=== PATIENT | male | born 1955 | race Caucasian/White ===

== ENCOUNTER 2025-06-21 08:39 | Emergency (ER) | payer OTHER, SELFPAY ==
[2025-06-21 08:45] VITALS: BP 148/97; PULSE 102; RESP 18; TEMP 36.4; O2SAT 98; BMI 26.0
--- NOTE | 2025-06-21 09:02 | ED.GENADULT ---
HPI - General Adult General Chief complaint: Unspecified Complaint, Adult Stated complaint: cardiac and skin concerns Time Seen by Provider: 06/21/25 08:57 History of Present Illness HPI narrative: Patient is a 69-year-old gentleman earlier this month had what sounds like a left femoral popliteal bypass. He does use tobacco. He has a home health nurse that the and the emergency room today as the patient has been out of his amiodarone and Eliquis and metoprolol for the last week. Patient has no signs of any clotting. The wound is due to be inspected on the left groin. He does have a follow-up appointment in 2 weeks with 1 my colleagues. He has had no chest pain no shortness a breath orthopnea no PND. He is not able to tell me his complete past medical history. He is not certain why his meds have run out. Related Data Home Medications ?Medication ?Instructions ?Recorded ?Confirmed gabapentin 100 mg capsule 100 mg PO TID 09/03/24 06/21/25 magnesium gluconate 29.25 mg (500 29.3 mg PO QDAY 09/03/24 06/21/25 mg) tablet metoprolol tartrate 25 mg tablet 25 mg PO QDAY 09/03/24 06/21/25 omeprazole 20 mg capsule,delayed 20 mg PO QDAY 09/03/24 06/21/25 release amiodarone 200 mg tablet 200 mg PO DAILY 06/21/25 06/21/25 apixaban 5 mg tablet (Eliquis) 5 mg PO BID 06/21/25 06/21/25 Previous Rx's ?Medication ?Instructions ?Recorded amiodarone 200 mg tablet 200 mg PO DAILY #30 tabs 06/21/25 apixaban 5 mg tablet (Eliquis) 5 mg PO BID #60 tabs 06/21/25 metoprolol tartrate 25 mg tablet 25 mg PO BID #60 tabs 06/21/25 Allergies Allergy/AdvReac Type Severity Reaction Status Date / Time No Known Allergies Allergy Mild Verified 06/21/25 08:53 Review of Systems Status of ROS: Reports: 10 or more systems reviewed and unremarkable except as noted in History and below [facility] PFS Surgical History S/P femoral-popliteal bypass surgery ?Z95.828 - Presence of other vascular implants and grafts (ICD-10) Exam Narrative: Exam Narrative: EXAM GENERAL: Patient appears comfortable and well. EYES: No scleral icterus. ENT: Tympanic membranes and oropharynx normal. THYROID: no thyroid nodules or thyromegaly. LYMPH: No supraclavicular or cervical lymphadenopathy. SKIN: Incisions look reasonable in left groin no signs of secondary infection or clotting. EXT: No dependent lower extremity pedal edema. HEART: Regular rate and rhythm with no murmurs, rubs, or gallops. LUNGS: Clear to auscultation bilaterally with no crackles or wheezes. ABD: Soft, non tender, non distended. PSYCH: Good eye contact, speech is not pressured. Const: Vital Signs, click to edit/add: Vital Signs - 24 hr 06/21/25 08:45 Temperature 97.6 F Pulse Rate [Right Pulse Oximeter] 102 H Respiratory Rate 18 Blood Pressure [Ri ght Upper Arm] 148/97 H Pulse Oximetry 98 Oxygen Delivery Me thod Room Air Course Course ED Course: Patient seen examined. Will try to get his meds arrange for him. He has home health services an Reevaluation(s) Reevaluation #1: Examination of the left leg shows a good wound healing in the groin with a significant granulation tissue with some exudate noted at the fasciotomy in the left medial calf. Sutures are still in place. I do not see an acute infection. Vital Signs Vital signs: Initial Vital Signs Temperature 97.6 F 06/21/25 08:45 Temperature Source Temporal Artery Scan 06/21/25 08:45 Pulse Rate 102 H 06/21/25 08:45 Pulse Rhythm Regular 06/21/25 08:45 Pulse Strength 3+ Normal 06/21/25 08:45 Respiratory Rate 18 06/21/25 08:45 Blood Pressure 148/97 H 06/21/25 08:45 Blood Pressure Mean 114 H 06/21/25 08:45 Blood Pressure Position Sitting 06/21/25 08:45 Pulse Oximetry 98 06/21/25 08:45 Oxygen Delivery Method Room Air 06/21/25 08:45 Vital Signs Temperature 97.6 F 06/21/25 08:45 Pulse Rate 102 H 06/21/25 08:45 Respiratory Rate 18 06/21/25 08:45 Blood Pressure 148/97 H 06/21/25 08:45 Pulse Oximetry 98 06/21/25 08:45 Oxygen Delivery Method Room Air 06/21/25 08:45 Temperature 97.6 F 06/21/25 08:45 Pulse Rate 102 H 06/21/25 08:45 Respiratory Rate 18 06/21/25 08:45 Blood Pressure 148/97 H 06/21/25 08:45 Pulse Oximetry 98 06/21/25 08:45 Oxygen Delivery Method Room Air 06/21/25 08:45 Medical Decision Making MDM Narrative Medical decision making narrative: Patient is a 69-year-old gentleman who apparently had a femoral popliteal bypass and left groin as well as fasciotomy for compartment syndrome in the left calf. The patient has been out of his medications for a week. There is no signs of clotting. Patient has very poor insight to his situation. I did do a careful exam and I do not see any pathology other than the healing wound to the left groin and the granulation tissue with sutures in the left medial calf. I do not believe it is best interest for me to remove his sutures today. Do not see any signs of acute infection. I a.m. able to get him back on his medication and have the sent those to his pharmacy with instructions that he absolutely cannot miss any further doses. He does have follow-up with my colleague in approximately 10 days. He will call if he needs help with sooner. I am concerned as the patient does not appear to have complete understanding of his health care needs. Spent Time trying to educate him. Discharge Plan Discharge Clinical Impression: PAD (peripheral artery disease) Patient Disposition: Home, Self-Care Condition: Stable Instructions: Acute Wounds (ED) Additional Instructions: I would clean the wound daily with saline or sterile water and re-dress. Continue taking Your medications. contact her doctor's office to see if they can move you into next week. Activity Level: No Restrictions Prescriptions: New amiodarone 200 mg tablet 200 mg PO DAILY Qty: 30 3RF Eliquis 5 mg tablet 5 mg PO BID Qty: 60 2RF metoprolol tartrate 25 mg tablet 25 mg PO BID Qty: 60 2RF No Action gabapentin 100 mg capsule 100 mg PO TID metoprolol tartrate 25 mg tablet 25 mg PO QDAY omeprazole 20 mg capsule,delayed release(DR/EC) 20 mg PO QDAY magnesium gluconate 29.25 mg (500 mg) tablet 29.3 mg PO QDAY Eliquis 5 mg tablet 5 mg PO BID amiodarone 200 mg tablet 200 mg PO DAILY Follow Up/Referrals: Provider,Not a Local [Primary Care Provider, Family Practice] Stand Alone Forms: MyHealth Info Instructions
[2025-06-21 09:56] VITALS: BP 142/83; PULSE 93; RESP 18
== END 2025-06-21 09:56 | disposition home or self-care (01) ==
PROVIDERS: Emergency Provider Internal Medicine
DX: L92.8 Other granulomatous disorders of the skin and subcutaneous tissue (principal); T46.2X6A Underdosing of other antidysrhythmic drugs, initial encounter; T45.516A Underdosing of anticoagulants, initial encounter; Z91.148 Patient's other noncompliance with medication regimen for other reason; Z72.0 Tobacco use
CPT/HCPCS: 99283

== ENCOUNTER 2025-07-04 07:53 | Outpatient (CLI) | payer OTHER, SELFPAY | END 2025-07-04 07:54 | disposition home or self-care (01) | LOC: WOUND 07:54 | PROVIDERS: Visit Provider Nurse Practitioner Family | DX: L89.623 Pressure ulcer of left heel, stage 3 (principal); T81.31XA Disruption of external operation (surgical) wound, not elsewhere classified, initial encounter; I70.212 Atherosclerosis of native arteries of extremities with intermittent claudication, left leg; I48.91 Unspecified atrial fibrillation; I47.10 Supraventricular tachycardia, unspecified; F17.200 Nicotine dependence, unspecified, uncomplicated; Z79.01 Long term (current) use of anticoagulants; Z95.828 Presence of other vascular implants and grafts | CPT/HCPCS: 11042; 11045; 97597; G0463 ==

== ENCOUNTER 2025-07-11 10:00 | Outpatient (CLI) | payer OTHER, SELFPAY | END 2025-07-11 10:01 | disposition home or self-care (01) | LOC: WOUND 10:00 | PROVIDERS: Visit Provider Nurse Practitioner Family | DX: T81.31XA Disruption of external operation (surgical) wound, not elsewhere classified, initial encounter (principal); L89.623 Pressure ulcer of left heel, stage 3; I70.212 Atherosclerosis of native arteries of extremities with intermittent claudication, left leg; I48.91 Unspecified atrial fibrillation; I47.10 Supraventricular tachycardia, unspecified; F17.200 Nicotine dependence, unspecified, uncomplicated | CPT/HCPCS: 11042 ==

== ENCOUNTER 2025-07-19 08:27 | Outpatient (CLI) | payer OTHER, SELFPAY | END 2025-07-19 08:28 | disposition home or self-care (01) | LOC: WOUND 08:27 | PROVIDERS: Visit Provider Physician Assistant | DX: T81.31XA Disruption of external operation (surgical) wound, not elsewhere classified, initial encounter (principal); L89.623 Pressure ulcer of left heel, stage 3; I70.212 Atherosclerosis of native arteries of extremities with intermittent claudication, left leg; I47.10 Supraventricular tachycardia, unspecified; Z95.828 Presence of other vascular implants and grafts; F17.200 Nicotine dependence, unspecified, uncomplicated | CPT/HCPCS: 97597 ==

== ENCOUNTER 2025-07-24 09:46 | Outpatient (CLI) | payer OTHER, SELFPAY | END 2025-07-24 09:47 | disposition home or self-care (01) | LOC: FRMREF 09:48 | PROVIDERS: PCP Family Medicine; Visit Provider Family Medicine | DX: Z00.00 Encounter for general adult medical examination without abnormal findings (principal); Z13.6 Encounter for screening for cardiovascular disorders; Z13.29 Encounter for screening for other suspected endocrine disorder; Z12.5 Encounter for screening for malignant neoplasm of prostate; E83.42 Hypomagnesemia | CPT/HCPCS: 80053; 80061; 83735; 84439; 84443; G0103 ==